=== PATIENT | male | born 1985 | race Caucasian/White ===

== ENCOUNTER 2025-06-13 14:41 | Emergency (ER) | payer MEDICAID ==
[2025-06-13] MEDS: cefTRIAXone 1 GM, Lidocaine 1% 2.1 ML IM ONE (15:13)
== END 2025-06-13 16:00 | disposition home or self-care (01) ==
LOC: VM.ED 14:41
DX: K04.7 Periapical abscess without sinus (principal); Z79.899 Other long term (current) drug therapy
CPT/HCPCS: 96372; 99283; J0696; J2003